=== PATIENT | female | born 1980 | race Caucasian/White ===

== ENCOUNTER 2020-08-23 17:08 | Emergency (ER) | payer SELFPAY ==
[~2020-08-23] VITALS: Ht 170.1 cm; Wt 139.3 kg
== END 2020-08-23 19:01 | disposition short-term general hospital (02) ==
LOC: ED 17:08
DX: T14.90XA Injury, unspecified, initial encounter (principal); W10.8XXA Fall (on) (from) other stairs and steps, initial encounter; Y93.89 Activity, other specified; Y92.89 Other specified places as the place of occurrence of the external cause; Y99.8 Other external cause status